=== PATIENT | female | born 1960 | race Caucasian/White ===

== ENCOUNTER 2020-07-28 09:05 | Outpatient (CLI) | payer SELFPAY | END 2020-07-28 23:59 | disposition home or self-care (01) | LOC: WOU 09:05 | PROVIDERS: ATTEND Specialist | DX: Z01.818 Encounter for other preprocedural examination (principal); T86.822 Skin graft (allograft) (autograft) infection | CPT/HCPCS: G0463 ==

== ENCOUNTER 2021-07-06 09:00 | Outpatient (CLI) | payer SELFPAY | END 2021-07-06 23:59 | disposition home or self-care (01) | LOC: WOU 09:00 | PROVIDERS: ATTEND Specialist | DX: T86.822 Skin graft (allograft) (autograft) infection (principal); L03.211 Cellulitis of face; B96.5 Pseudomonas (aeruginosa) (mallei) (pseudomallei) as the cause of diseases classified elsewhere | CPT/HCPCS: G0463 ==

== ENCOUNTER 2022-01-11 09:00 | Outpatient (CLI) | payer SELFPAY | END 2022-01-11 23:59 | disposition home or self-care (01) | LOC: WOU 09:00 | PROVIDERS: ATTEND Specialist | DX: Z01.818 Encounter for other preprocedural examination (principal); T86.822 Skin graft (allograft) (autograft) infection; T86.828 Other complications of skin graft (allograft) (autograft); E03.9 Hypothyroidism, unspecified | CPT/HCPCS: G0463 ==

== ENCOUNTER 2022-05-17 08:33 | Outpatient (CLI) | payer OTHER | END 2022-05-17 23:59 | disposition home or self-care (01) | LOC: WOU 08:33 | PROVIDERS: ATTEND Specialist | DX: Z01.818 Encounter for other preprocedural examination (principal); T86.822 Skin graft (allograft) (autograft) infection; T86.828 Other complications of skin graft (allograft) (autograft) | CPT/HCPCS: G0463 ==